=== PATIENT | male | born 1960 | race Caucasian/White ===

== ENCOUNTER 2023-06-18 06:27 | Day surgery (SDC) | payer MEDICAID ==
[2023-06-11 15:02] LABS: BASOPHILS # (AUTO) 0.2 X10'3 (0-0.2); BASOPHILS % (AUTO) 1.4 % (0-1); EOSINOPHILS # (AUTO) 0.2 X10'3 (0-0.9); EOSINOPHILS % (AUTO) 1.4 % (0-6); LYMPHOCYTES # (AUTO) 2.9 X10'3 (1.1-4.8); LYMPHOCYTES % (AUTO) 23.4 % (21-51); MEAN CORPUSCULAR HEMOGLOBIN 33.1 PG (27.0-31.0); MEAN CORPUSCULAR HGB CONC 34.2 g/dL (33.0-36.5); MEAN CORPUSCULAR VOLUME 96.6 FL (78-98); MEAN PLATELET VOLUME 7.9 FL (7.4-10.4); MONOCYTES # (AUTO) 0.9 X10'3 (0-0.9); MONOCYTES % (AUTO) 7.3 % (2-12); NEUTROPHILS # (AUTO) 8.3 X10'3 (1.8-7.7); NEUTROPHILS % (AUTO) 66.5 % (42-75); PRE OP HEMATOCRIT 50.3 % (42.0-52.0); PRE OP HEMOGLOBIN 17.2 g/dL (14.0-17.9); PRE OP PLATELET COUNT 272 X10'3 (140-440); RED BLOOD COUNT 5.21 X10'6 (4.70-6.10); RED CELL DISTRIBUTION WIDTH 13.5 % (11.5-14.5)
[2023-06-11 15:17] LABS: ALBUMIN 4.3 G/DL (3.4-5.0); ALBUMIN/GLOBULIN RATIO 1.4 (1.1-1.5); ALKALINE PHOSPHATASE 83 IU/L (46-116); BLOOD UREA NITROGEN 17 MG/DL (7-18); BUN/CREATININE RATIO 13.4 (10.0-20.0); CALCIUM 9.5 MG/DL (8.5-10.1); CHLORIDE 100 MMOL/L (99-107); CREATININE 1.27 MG/DL (0.60-1.10); PRE OP ALT 37 U/L (30-65); PRE OP ANION GAP 10 (8-16); PRE OP AST 22 U/L (10-37); PRE OP BILIRUB, TOTAL 0.5 MG/DL (0.0-1.0); PRE OP GLUCOSE 95 MG/DL (70-104); PRE OP POTASSIUM 3.6 MMOL/L (3.4-5.1); PRE OP SODIUM 138 MMOL/L (135-145); TOTAL PROTEIN 7.3 G/DL (6.4-8.2); eGFR 57 ML/MIN
[~2023-06-18] VITALS: Ht 170.2 cm; Wt 83.6 kg
[2023-06-18] VITALS (7 sets, daily range): BP systolic 122–133; BP diastolic 85–90; PULSE 66–79; RESP 12–16; TEMP 98; O2SAT 95–98
[~2023-06-18 06:27] MED LIST: ASPI-1397 PO; ATOR-2 PO; HYDR-3972 PO; HYDR25TA5 PO; LISI20TA28 PO; METF-1203 PO; OMEP20CA16 PO; cefazolin 2gm/D5W 100mL 100 ML IV ONE; famotidine 20mg tablet PO ONE; ringers solution, lacted 1,000 ML IV SCH; ringers solution, lacted 500 ML IV SCH
[2023-06-18] MEDS ORDERED: BUPIVAcaine/PF 2.5mg/ml (0.25%) 10ml vial ONE (06:37)
[2023-06-18] MEDS ORDERED: BUPIVAcaine/PF 2.5mg/ml (0.25%) 10ml vial IJ ONE (09:00)
[2023-06-18] MEDS ORDERED: fentaNYL/PF 50MCG/1 ML 2ML syringe ONE (09:21)
[2023-06-18] MEDS ORDERED: midazolam 1 mg/ML 2ml injection ONE (09:22)
--- NOTE | 2023-06-18 09:50 | NUR ---
PT ARRIVED TO [facility]IA [facility] ACCOMPANIED BY DR. COLE-ANESTHESIA REPORT GIVEN, PT AWAKE AND ALERT, VSS, DENIES PAIN, DSG-CDI TO RIGHT HAND, FINGERS PINK/WARM
[2023-06-18] MEDS ORDERED: propofol inj 20 ML IV ONE (10:08)
--- NOTE | 2023-06-18 10:50 | NUR ---
PT DOING WELL, UP GETTING DRESSED, VSS, DENIES PAIN, DRSG-CDI STILL, MOVING FINGERS, FEELING PRESENT, PINK/WARM, D/C INSTRUCTIONS GIVEN TO PT - ALL QUESTIONS ANSWERED, PT TAKEN WITH ALL BELONGINGS TO VEHICLE FOR TRANSPORT HOME.
== END 2023-06-18 10:50 | disposition home or self-care (01) ==
LOC: PAS 06:27
PROVIDERS: ATTEND Orthopaedic Surgery Hand Surgery
DX: G56.01 Carpal tunnel syndrome, right upper limb (principal); E78.00 Pure hypercholesterolemia, unspecified; I10 Essential (primary) hypertension; M19.90 Unspecified osteoarthritis, unspecified site; K21.9 Gastro-esophageal reflux disease without esophagitis; E11.9 Type 2 diabetes mellitus without complications; Z79.82 Long term (current) use of aspirin; Z79.84 Long term (current) use of oral hypoglycemic drugs; Z79.899 Other long term (current) drug therapy; F17.290 Nicotine dependence, other tobacco product, uncomplicated; Z72.89 Other problems related to lifestyle; Z98.890 Other specified postprocedural states
CPT/HCPCS: 36415; 64721; 80053; 82948; 85025; 93005; J0690; J2250; J2704; J3010; J3490; J7030; J7120; Z7506; Z7512; A4215